=== PATIENT | female | born 1955 | race Caucasian/White ===

== ENCOUNTER → 2017-10-30 | Outpatient (REF) | payer BC | LOC: M LAB REF 11-02 14:45 | DX: N39.0 Urinary tract infection, site not specified (principal) | CPT/HCPCS: 87186 ==

== ENCOUNTER 2019-11-25 11:00 | Emergency (ER) | payer BC | END 2019-11-25 15:00 | disposition home or self-care (01) | LOC: M ED 11:00 | DX: S89.91XA Unspecified injury of right lower leg, initial encounter (principal); W19.XXXA Unspecified fall, initial encounter; Y92.410 Unspecified street and highway as the place of occurrence of the external cause ==